=== PATIENT | female | born 1955 | race Caucasian/White ===

== ENCOUNTER → 2017-01-13 | Outpatient (CLI) | payer BC ==
[2015-02-17 11:39] VITALS: BP 125/81
== END ==
LOC: MAMMO 10:40
DX: Z12.31 Encounter for screening mammogram for malignant neoplasm of breast (principal)
CPT/HCPCS: G0202

== ENCOUNTER → 2017-01-19 | Day surgery (SDC) | payer BC ==
[2015-02-17 11:39] VITALS: BP 125/81
== END ==
LOC: MSO
DX: Z12.11 Encounter for screening for malignant neoplasm of colon (principal); Z86.010 Personal history of colon polyps; K62.1 Rectal polyp; K92.1 Melena; K57.30 Diverticulosis of large intestine without perforation or abscess without bleeding; F17.210 Nicotine dependence, cigarettes, uncomplicated
CPT/HCPCS: 00810; J3010; J7120

== ENCOUNTER → 2017-04-21 | Outpatient (CLI) | payer BC ==
[2015-02-17 11:39] VITALS: BP 125/81
== END ==
LOC: RAD 07:15
DX: I65.23 Occlusion and stenosis of bilateral carotid arteries (principal)

== ENCOUNTER → 2018-03-04 | Outpatient (CLI) | payer BC ==
[2015-02-17 11:39] VITALS: BP 125/81
== END ==
LOC: MAMMO 10:00
DX: Z12.31 Encounter for screening mammogram for malignant neoplasm of breast (principal)

== ENCOUNTER → 2018-05-06 | Outpatient (CLI) | payer BC ==
[2015-02-17 11:39] VITALS: BP 125/81
== END ==
LOC: RAD 08:19
DX: R16.0 Hepatomegaly, not elsewhere classified (principal)

== ENCOUNTER → 2019-03-22 | Outpatient (CLI) | payer BC ==
[2015-02-17 11:39] VITALS: BP 125/81
== END ==
LOC: MAMMO 09:49
DX: Z12.31 Encounter for screening mammogram for malignant neoplasm of breast (principal)

== ENCOUNTER → 2020-03-07 | Outpatient (CLI) | payer MEDICARE ==
[2015-02-17 11:39] VITALS: BP 125/81
== END ==
LOC: RAD 14:07
DX: Z78.0 Asymptomatic menopausal state (principal); Z72.0 Tobacco use

== ENCOUNTER → 2020-03-07 | Outpatient (CLI) | payer MEDICARE ==
[2015-02-17 11:39] VITALS: BP 125/81
== END ==
LOC: MAMMO 13:29
DX: Z12.31 Encounter for screening mammogram for malignant neoplasm of breast (principal)

== ENCOUNTER → 2020-03-15 | Day surgery (SDC) | payer MEDICARE ==
[2015-02-17 11:39] VITALS: BP 125/81
== END ==
LOC: MSO 07:25
DX: Z12.11 Encounter for screening for malignant neoplasm of colon (principal); K57.30 Diverticulosis of large intestine without perforation or abscess without bleeding; K56.699 Other intestinal obstruction unspecified as to partial versus complete obstruction; D12.2 Benign neoplasm of ascending colon; Z90.710 Acquired absence of both cervix and uterus; F17.210 Nicotine dependence, cigarettes, uncomplicated; Z86.010 Personal history of colon polyps
CPT/HCPCS: 00811; J2704; J7120

== ENCOUNTER → 2021-02-25 | Outpatient (CLI) | payer MEDICARE ==
[2021-02-25 09:29] LABS: BASO # 0.05 (0.02-0.10); EOS # 0.17 (0.04-0.40); EOS % 1.9 % (1.0-5.0); HEMATOCRIT 46.8 % (37.0-47.0); HEMOGLOBIN 15.5 g/dL (12.5-16.0); LYMPH# 2.61 (1.50-4.00); MEAN CELL VOLUME 95 fl (78-100); MEAN CORPUSCULAR HEMOGLOBIN 31 pg (27-31); MEAN CORPUSCULAR HGB CONC 33 g/dL (33-37); MEAN PLATELET VOLUME 9.5 fl (7.4-10.4); MONO # 0.58 (0.20-0.80); NEU # 5.42 (1.40-6.50); PLATELET COUNT 274 K/mm3 (130-400); RED BLOOD COUNT 4.93 M/mm3 (4.10-5.30); RED CELL DISTRIBUTION WIDTH 13.4 % (11.5-14.5); WHITE BLOOD COUNT 8.9 K/mm3 (4.8-10.8)
[2021-02-25 09:41] LABS: ALBUMIN 4.1 g/dL (3.4-4.8); POTASSIUM 4.1 mmol/L (3.5-5.1)
[2021-02-25 09:42] LABS: CALCIUM 9.3 mg/dL (8.3-10.5)
[2021-02-25 09:44] LABS: TOTAL PROTEIN 7.4 g/dL (6.2-8.1)
[2021-02-25 09:45] LABS: TOTAL BILIRUBIN 0.3 mg/dL (0.2-1.2)
== END ==
LOC: LAB 09:06
PROVIDERS: Internal Medicine
DX: Z12.11 Encounter for screening for malignant neoplasm of colon (principal); K90.9 Intestinal malabsorption, unspecified; E78.2 Mixed hyperlipidemia; F41.8 Other specified anxiety disorders

== ENCOUNTER → 2021-03-12 | Outpatient (CLI) | payer MEDICARE | LOC: MAMMO 08:00 | DX: M81.0 Age-related osteoporosis without current pathological fracture (principal); Z12.31 Encounter for screening mammogram for malignant neoplasm of breast; M85.80 Other specified disorders of bone density and structure, unspecified site ==

== ENCOUNTER → 2022-03-03 | Outpatient (CLI) | payer MEDICARE ==
[2022-03-03 09:54] LABS: POTASSIUM 4.1 mmol/L (3.5-5.1)
[2022-03-03 09:55] LABS: ALBUMIN 3.9 g/dL (3.4-4.8)
[2022-03-03 09:56] LABS: CALCIUM 9.4 mg/dL (8.3-10.5)
[2022-03-03 09:57] LABS: TOTAL PROTEIN 6.8 g/dL (6.2-8.1)
[2022-03-03 10:00] LABS: BASO # 0.04 K/mm3 (0.02-0.10); EOS # 0.16 K/mm3 (0.04-0.40); HEMOGLOBIN 14.8 g/dL (12.5-16.0); LYMPH# 2.29 K/mm3 (1.50-4.00); MEAN CELL VOLUME 95 fl (78-100); MEAN CORPUSCULAR HEMOGLOBIN 32 pg (27-31); MEAN CORPUSCULAR HGB CONC 34 g/dL (33-37); MEAN PLATELET VOLUME 9.9 fl (7.4-10.4); MONO # 0.54 K/mm3 (0.20-0.80); NEU # 4.87 K/mm3 (1.40-6.50); PLATELET COUNT 261 K/mm3 (130-400); RED BLOOD COUNT 4.61 M/mm3 (4.10-5.30); RED CELL DISTRIBUTION WIDTH 13.5 % (11.5-14.5); WHITE BLOOD COUNT 7.9 K/mm3 (4.8-10.8)
[2022-03-03 11:08] LABS: TOTAL BILIRUBIN 0.4 mg/dL (0.2-1.2)
[2022-03-03 13:48] LABS: ERYTHROCYTE SEDIMENTATION RATE 20 mm/hr (0-30)
== END ==
LOC: LAB 08:37
PROVIDERS: Internal Medicine
DX: Z12.31 Encounter for screening mammogram for malignant neoplasm of breast (principal); Z12.11 Encounter for screening for malignant neoplasm of colon; K90.9 Intestinal malabsorption, unspecified; E78.2 Mixed hyperlipidemia; Z98.890 Other specified postprocedural states

== ENCOUNTER → 2022-03-06 | Outpatient (CLI) | payer MEDICARE | LOC: LAB 13:28 | DX: Z12.39 Encounter for other screening for malignant neoplasm of breast (principal); Z12.11 Encounter for screening for malignant neoplasm of colon; E78.2 Mixed hyperlipidemia; K90.9 Intestinal malabsorption, unspecified; Z98.890 Other specified postprocedural states ==

== ENCOUNTER → 2022-03-13 | Outpatient (CLI) | payer MEDICARE | LOC: MAMMO 03-04 10:00 | DX: Z12.31 Encounter for screening mammogram for malignant neoplasm of breast (principal) ==

== ENCOUNTER → 2024-03-17 | Outpatient (CLI) | payer MEDICARE ==
[2024-03-17 09:12] LABS: BASO # 0.03 K/mm3 (0.02-0.10); EOS # 0.19 K/mm3 (0.04-0.40); EOS % 2.4 % (1.0-5.0); HEMATOCRIT 42.1 % (37.0-47.0); LYMPH# 2.32 K/mm3 (1.50-4.00); MEAN CELL VOLUME 96 fl (78-100); MEAN CORPUSCULAR HEMOGLOBIN 32 pg (27-31); MEAN CORPUSCULAR HGB CONC 33 g/dL (33-37); MEAN PLATELET VOLUME 9.3 fl (7.4-10.4); MONO # 0.46 K/mm3 (0.20-0.80); NEU # 4.77 K/mm3 (1.40-6.50); PLATELET COUNT 260 K/mm3 (130-400); RED CELL DISTRIBUTION WIDTH 13.3 % (11.5-14.5); WHITE BLOOD COUNT 7.8 K/mm3 (4.8-10.8)
[2024-03-17 09:20] LABS: ALBUMIN 3.9 g/dL (3.4-4.8)
[2024-03-17 09:21] LABS: CALCIUM 9.2 mg/dL (8.3-10.5)
[2024-03-17 09:23] LABS: TOTAL PROTEIN 6.5 g/dL (6.2-8.1)
[2024-03-17 09:24] LABS: TOTAL BILIRUBIN 0.3 mg/dL (0.2-1.2)
[2024-03-17 09:29] LABS: MAGNESIUM 1.91 mg/dL (1.60-2.60)
== END ==
LOC: LAB 08:37
PROVIDERS: Internal Medicine
DX: K90.9 Intestinal malabsorption, unspecified (principal); E78.2 Mixed hyperlipidemia; F41.8 Other specified anxiety disorders; R73.9 Hyperglycemia, unspecified

== ENCOUNTER → 2024-03-23 | Outpatient (CLI) | payer MEDICARE | LOC: MAMMO 10:42 | DX: Z12.31 Encounter for screening mammogram for malignant neoplasm of breast (principal) ==

== ENCOUNTER → 2024-08-18 | Outpatient (CLI) | payer MEDICARE ==
[2024-08-18 17:40] LABS: ALBUMIN 4.3 g/dL (3.4-4.8)
[2024-08-18 17:41] LABS: CALCIUM 9.2 mg/dL (8.3-10.5)
[2024-08-18 17:42] LABS: TOTAL PROTEIN 7.7 g/dL (6.2-8.1)
[2024-08-18 17:44] LABS: TOTAL BILIRUBIN 0.2 mg/dL (0.2-1.2)
[2024-08-18 17:49] LABS: MAGNESIUM 1.86 mg/dL (1.60-2.60)
[2024-08-18 17:58] LABS: BASO # 0.01 K/mm3 (0.02-0.10); EOS # 0.22 K/mm3 (0.04-0.40); EOS % 2.1 % (1.0-5.0); HEMATOCRIT 44.5 % (37.0-47.0); HEMOGLOBIN 14.4 g/dL (12.5-16.0); LYMPH# 2.88 K/mm3 (1.50-4.00); MEAN CELL VOLUME 96 fl (78-100); MEAN CORPUSCULAR HEMOGLOBIN 31 pg (27-31); MEAN CORPUSCULAR HGB CONC 32 g/dL (33-37); MEAN PLATELET VOLUME 9.4 fl (7.4-10.4); NEU # 6.86 K/mm3 (1.40-6.50); PLATELET COUNT 332 K/mm3 (130-400); RED BLOOD COUNT 4.62 M/mm3 (4.10-5.30); RED CELL DISTRIBUTION WIDTH 13.6 % (11.5-14.5); WHITE BLOOD COUNT 10.6 K/mm3 (4.8-10.8)
== END ==
LOC: LAB 17:20
PROVIDERS: Internal Medicine
DX: R55 Syncope and collapse (principal)